=== PATIENT | female | born 1975 | race Hispanic/Latino ===

== ENCOUNTER 2017-09-22 07:34 | Day surgery (SDC) | payer OTHER ==
[2017-09-21 16:20] VITALS: BP 104/67
[2017-09-21 16:55] LABS: BASOPHILS % (AUTO) 1.2 % (0.0-5.0); EOSINOPHILS % (AUTO) 0.8 % (0.0-8.0); HEMATOCRIT 42.3 % (36-48); LYMPHOCYTES % (AUTO) 15.5 % (21.0-51.0); MEAN CORPUSCULAR HEMOGLOBIN 28.5 pg (27.0-33.0); MEAN CORPUSCULAR HGB CONC 33.1 g/dL (32.0-36.0); NEUTROPHILS % (AUTO) 74.5 % (40.0-77.0); PLATELET COUNT (AUTO) 213 K/uL (130-400); RED BLOOD CELL COUNT(AUTO) 4.91 MIL/uL (4.00-5.50); RED CELL DISTRIBUTION WIDTH 16.1 % (11.0-15.5); WHITE BLOOD COUNT (AUTO) 6.4 K/uL (4.8-10.8)
[2017-09-22] VITALS (17 sets, daily range): BP systolic 94–119; BP diastolic 60–80
[~2017-09-22] VITALS: Ht 165.1 cm; Wt 62.6 kg
[~2017-09-22 07:34] MED LIST: CALDOLOR 800MG+NS 250ML 250 ML IV SCH; CEFAZOLIN SODIUM 1 GM VIAL IVP SCH; FERR1TAB66 PO; LACTATED RINGERS 1000ML 1,000 ML IV SCH; [UNRECOGNIZED DRUG - OTHER] PO
[2017-09-22] MEDS ORDERED: FENTANYL CITRATE PF 50 MCG/1 ML 2ML VIAL ONE (11:31)
[2017-09-22] MEDS ORDERED: MEPERIDINE-PF 25 MG/ML SYG ONE (11:59)
== END 2017-09-22 13:43 | disposition home or self-care (01) ==
LOC: DAH 07:34
PROVIDERS: ATTEND Obstetrics & Gynecology
DX: D25.0 Submucous leiomyoma of uterus (principal); Z98.890 Other specified postprocedural states
CPT/HCPCS: 36415; 58561; 84703; 85025; 86850; 86900; 86901; 88305; A4218; A4351; A4355; A4358; A4510; A4600; J0690; J1741; J2175; J3010; J7030; J7120

== ENCOUNTER 2018-05-18 10:42 | Emergency (ER) | payer OTHER ==
[~2018-05-18 10:42] MED LIST changes: -CALDOLOR 800MG+NS 250ML 250 ML IV SCH; -CEFAZOLIN SODIUM 1 GM VIAL IVP SCH; -LACTATED RINGERS 1000ML 1,000 ML IV SCH
== END 2018-05-18 11:39 | disposition home or self-care (01) ==
LOC: EDH 10:42
DX: F41.9 Anxiety disorder, unspecified (principal); I10 Essential (primary) hypertension